=== PATIENT | female | born 1950 | race Caucasian/White ===

== ENCOUNTER 2018-07-13 06:55 | Inpatient (IN) | payer MEDICARE, OTHER ==
[~2018-07-13] VITALS: Ht 154.9 cm; Wt 65.0 kg
[2018-07-13] VITALS (12 sets, daily range): BP systolic 101–126; BP diastolic 37–68
[~2018-07-13 06:55] MED LIST: ALPR1TAB7 SL; ARIP5TAB4 PO; BENA20TA2 PO; BUPR1PAT TP; CHOL100046 PO; DESV100T4 PO; FERR134T2 PO; HYDR-4353 PO; LACT1CAP64 PO; LEVO75TA PO; METO25TA6 PO; ONDA8TAB6 PO; OXYB10TA4 PO
[2018-07-13] MEDS ORDERED: LAMO150T2 PO (07:45)
[2018-07-13] MEDS ORDERED: NALO25TA (07:45)
[2018-07-13] MEDS ORDERED: OXYBUTIN PO (07:45)
[2018-07-13] MEDS ORDERED: HYDR-4353 PO (07:45)
[2018-07-13] MEDS ORDERED: ASPI-1264 PO (07:45)
[2018-07-13] MEDS ORDERED: HYDR-3686 PO (07:45)
[2018-07-13] MEDS ORDERED: [UNRECOGNIZED DRUG - OTHER] PO (07:45)
[2018-07-13] MEDS ORDERED: ONDA8TAB13 PO (07:45)
[2018-07-13] MEDS ORDERED: METH20TA PO (07:45)
[2018-07-13] MEDS ORDERED: CLOP75TA15 PO (07:47)
[2018-07-13 07:48] LABS: BASOPHILS % (AUTO) 0.4 % (0-1); EOSINOPHILS # (AUTO) 0.3 X10'3 (0-0.9); EOSINOPHILS % (AUTO) 3.4 % (0-6); HEMATOCRIT 23.1 % (35.0-45.0); HEMOGLOBIN 7.6 g/dl (12.0-16.0); LYMPHOCYTES # (AUTO) 1.3 X10'3 (1.1-4.8); LYMPHOCYTES % (AUTO) 17.8 % (21-51); MEAN CORPUSCULAR HEMOGLOBIN 29.8 PG (27.0-31.0); MEAN CORPUSCULAR HGB CONC 32.8 % (33.0-36.5); MEAN CORPUSCULAR VOLUME 90.8 FL (78-98); MEAN PLATELET VOLUME 6.9 FL (7.4-10.4); MONOCYTES # (AUTO) 0.5 X10'3 (0-0.9); MONOCYTES % (AUTO) 6.4 % (2-12); NEUTROPHILS # (AUTO) 5.3 X10'3 (1.8-7.7); PLATELET COUNT 320 X10'3 (140-440); RED BLOOD COUNT 2.54 X10'6 (4.20-5.60); RED CELL DISTRIBUTION WIDTH 13.2 % (11.5-14.5); WHITE BLOOD COUNT 7.4 X10'3 (4.5-11.0)
[2018-07-13 08:08] LABS: ALANINE AMINOTRANSFERASE 20 U/L (12-78); ALBUMIN/GLOBULIN RATIO 1.1 (1.1-1.5); ALKALINE PHOSPHATASE 83 IU/L (46-116); ANION GAP 10 (8-16); ASPARTATE AMINO TRANSFERASE 12 U/L (10-37); BILIRUBIN,TOTAL 0.2 MG/DL (0.1-1.0); BLOOD UREA NITROGEN 31 MG/DL (7-18); BUN/CREATININE RATIO 33.7 (6.6-38.0); CHLORIDE 109 MMOL/L (99-107); CREATININE 0.92 MG/DL (0.40-0.90); GLUCOSE 132 MG/DL (70-104); POTASSIUM 3.5 MMOL/L (3.5-5.1); SODIUM 144 MMOL/L (135-145); TOTAL CARBON DIOXIDE 24.7 MMOL/L (24-32); TOTAL PROTEIN 5.7 G/DL (6.4-8.2); eGFR 61 ML/MIN
[2018-07-13 08:11] LABS: PROTHROMBIN TIME 9.8 SECONDS (9.0-12.0)
--- NOTE | 2018-07-13 08:50 | NUR ---
WITNESSED PT'S STOOL. IT IS DEEP RED TARRY STOOL
[2018-07-13] MEDS ORDERED: pantoprazole IV 80 MG in normal saline 100ml IV soln 100 ML IV ONE ×4 (09:00)
[2018-07-13] MEDS ORDERED: pantoprazole 40 MG vial IV ONE (09:00)
[2018-07-13] MEDS: pantoprazole 40MG/NS 100ML BAG 100 ML IV SCH ×4 (09:42→21:03)
[2018-07-13] MEDS ORDERED: mag hydrox/Alum hydrox/simeth 30ml oral suspension PO PRN (09:45)
[2018-07-13] MEDS ORDERED: HYDROcodone/acetaminophen 5mg/325mg tablet PO PRN (09:45)
[2018-07-13] MEDS ORDERED: HYDROcodone/acetaminophen 10/325mg tab PO PRN (09:45)
[2018-07-13] MEDS ORDERED: bisacodyl 10mg suppository rectal RC PRN (09:45)
[2018-07-13] MEDS ORDERED: potassium Cl 20 mEq SR tablet PO PRN ×2 (09:45)
[2018-07-13] MEDS ORDERED: magnesium Cl slow-release 64mg tablet PO PRN (09:45)
[2018-07-13] MEDS ORDERED: ondansetron/PF 4mg/2ml inj IV PRN (09:45)
[2018-07-13] MEDS ORDERED: magnesium 2GM in 50ml NS 50 ML IV PRN (09:45)
[2018-07-13] MEDS ORDERED: potassium Cl 40MEQ/NS 500ml 500 ML IV PRN ×2 (09:45)
[2018-07-13] MEDS ORDERED: magnesium hydroxide 30ml (MOM) UD suspension PO PRN (09:45)
[2018-07-13] MEDS ORDERED: acetaminophen 325mg tablet PO PRN (09:45)
[2018-07-13] MEDS ORDERED: morphine 4 MG/ML inj SYRINge IV PRN ×2 (09:45)
[2018-07-13] MEDS ORDERED: magnesium 4gm in 100ml NS 100 ML IV PRN (09:45)
[2018-07-13] MEDS ORDERED: ALPRAZOLAM PO PRN (09:50)
[2018-07-13] MEDS ORDERED: non-formulary drug (Buprenorphine (Butrans) 1 PATCH) TP SCH (09:50)
[2018-07-13] MEDS: potassium Cl 20mEq in NS 1,000 ML IV SCH ×2 (10:32→22:14)
--- NOTE | 2018-07-13 10:42 | NUR ---
ALLERGY AND FALL BAND PLACED
--- NOTE | 2018-07-13 10:43 | NUR ---
PATIENT WILL HAVE HER GRANDDAUGHTER BRING IN THE NON FORMULARY MEDICATIONS PRESCRIBED
--- NOTE | 2018-07-13 10:47 | NUR ---
ATTEMPTED TO CALL REPORT TO SURGICAL FLOOR: ROOM CHANGED TO ROOM 346A AND THE ROOM IS NOT CLEAN THE ACCEPTING RN IS MINNIE
--- NOTE | 2018-07-13 10:53 | NUR ---
SPOKE TO NURSING THRESHING DEPARTMENT SUPERVISOR JEIMY BECAUSE PATIENT IS REQUESTING A BED BY THE WINDOW. PER JEIMY, THERE ARE NO B BEDS AVAILABLE
[2018-07-13] MEDS ORDERED: pantoprazole 40MG/NS 100ML BAG 100 ML IV SCH (11:00)
[2018-07-13] MEDS: methylphenidate 5mg tablet PO SCH ×2 (12:30→17:30)
--- NOTE | 2018-07-13 12:30 | NUR ---
Received report from SURGICAL TECHNOLOGY INSTRUCTOR. Patient arrived to the floor. TREVA.
[2018-07-13 12:49] LABS: BASOPHILS % (AUTO) 0.4 % (0-1); EOSINOPHILS # (AUTO) 0.3 X10'3 (0-0.9); EOSINOPHILS % (AUTO) 3.6 % (0-6); LYMPHOCYTES # (AUTO) 1.6 X10'3 (1.1-4.8); LYMPHOCYTES % (AUTO) 20.7 % (21-51); MEAN CORPUSCULAR HEMOGLOBIN 30.2 PG (27.0-31.0); MEAN CORPUSCULAR HGB CONC 33.3 % (33.0-36.5); MEAN CORPUSCULAR VOLUME 90.9 FL (78-98); MEAN PLATELET VOLUME 6.6 FL (7.4-10.4); MONOCYTES # (AUTO) 0.5 X10'3 (0-0.9); MONOCYTES % (AUTO) 7.2 % (2-12); NEUTROPHILS # (AUTO) 5.2 X10'3 (1.8-7.7); NEUTROPHILS % (AUTO) 68.1 % (42-75); PLATELET COUNT 300 X10'3 (140-440); RED BLOOD COUNT 2.29 X10'6 (4.20-5.60); RED CELL DISTRIBUTION WIDTH 13.9 % (11.5-14.5); WHITE BLOOD COUNT 7.6 X10'3 (4.5-11.0)
[2018-07-13 12:53] LABS: HEMATOCRIT 20.8 % (35.0-45.0); HEMOGLOBIN 6.9 g/dl (12.0-16.0)
[2018-07-13] MEDS ORDERED: acetaminophen 325mg tablet PO ONE (12:55)
[2018-07-13] MEDS ORDERED: diphenhydrAMINE 25mg capsule PO ONE (12:55)
--- NOTE | 2018-07-13 13:00 | NUR ---
H&H 6.9/.8. Dr Coon gave orders for blood transfusion. patient was consented in ER.
[2018-07-13] MEDS: venlafaxine 25mg tablet PO SCH ×2 (13:49→21:02)
[2018-07-13] MEDS ORDERED: furosemide 20 MG/2 ML vial IV ONE (14:55)
[2018-07-13] MEDS ORDERED: non-formulary drug (Methylphenidate Hcl (Ritalin) 1 TAB) PO SCH (16:00)
[2018-07-13 18:27] LABS: BASOPHILS % (AUTO) 0.6 % (0-1); EOSINOPHILS # (AUTO) 0.3 X10'3 (0-0.9); EOSINOPHILS % (AUTO) 3.8 % (0-6); HEMATOCRIT 22.1 % (35.0-45.0); HEMOGLOBIN 7.4 g/dl (12.0-16.0); LYMPHOCYTES # (AUTO) 1.6 X10'3 (1.1-4.8); LYMPHOCYTES % (AUTO) 24.2 % (21-51); MEAN CORPUSCULAR HEMOGLOBIN 29.8 PG (27.0-31.0); MEAN CORPUSCULAR HGB CONC 33.6 % (33.0-36.5); MEAN CORPUSCULAR VOLUME 88.7 FL (78-98); MEAN PLATELET VOLUME 7.1 FL (7.4-10.4); MONOCYTES # (AUTO) 0.6 X10'3 (0-0.9); MONOCYTES % (AUTO) 8.5 % (2-12); NEUTROPHILS # (AUTO) 4.3 X10'3 (1.8-7.7); NEUTROPHILS % (AUTO) 62.9 % (42-75); PLATELET COUNT 256 X10'3 (140-440); RED BLOOD COUNT 2.49 X10'6 (4.20-5.60); RED CELL DISTRIBUTION WIDTH 13.8 % (11.5-14.5); WHITE BLOOD COUNT 6.8 X10'3 (4.5-11.0)
--- NOTE | 2018-07-13 18:35 | NUR ---
Received report from primary care nurse Maureen BAHENA. Patient is awake and alert on room air. In no apparent distress. Call light and items of frequent use within reach. Will continue to monitor for changes.
[2018-07-13] MEDS: lactobacillus rhamnosus 10,000 MMU CELLS/CAPSULE PO SCH (19:43)
[2018-07-13] MEDS: ferrous sulfate 325mg tablet PO SCH (19:43)
[2018-07-13] MEDS: docusate sod 100mg capsule PO SCH (19:43)
[2018-07-13] MEDS: metoprolol tartrate 25mg tablet PO SCH (19:45)
[2018-07-13] MEDS: oxybutynin 5mg tablet PO SCH (19:50)
[2018-07-13] MEDS ORDERED: FERROUS SULFATE PO SCH (20:00)
[2018-07-13] MEDS ORDERED: OXYBUTIN PO SCH (20:00)
[2018-07-13] MEDS: hydrOXYzine 25 MG tablet PO SCH (21:02)
[2018-07-13] MEDS: ALPRAZolam 0.5mg tablet PO PRN (21:03)
[2018-07-13] MEDS: gabapentin 300mg capsule PO SCH (21:06)
[2018-07-14] VITALS (10 sets, daily range): BP systolic 98–129; BP diastolic 40–71
[2018-07-14 00:55] LABS: BASOPHILS % (AUTO) 0.4 % (0-1); EOSINOPHILS # (AUTO) 0.3 X10'3 (0-0.9); EOSINOPHILS % (AUTO) 3.7 % (0-6); HEMOGLOBIN 9.1 g/dl (12.0-16.0); LYMPHOCYTES # (AUTO) 1.9 X10'3 (1.1-4.8); LYMPHOCYTES % (AUTO) 25.1 % (21-51); MEAN CORPUSCULAR HEMOGLOBIN 29.3 PG (27.0-31.0); MEAN CORPUSCULAR HGB CONC 32.5 % (33.0-36.5); MEAN CORPUSCULAR VOLUME 90.2 FL (78-98); MEAN PLATELET VOLUME 7.2 FL (7.4-10.4); MONOCYTES # (AUTO) 0.7 X10'3 (0-0.9); MONOCYTES % (AUTO) 9.5 % (2-12); NEUTROPHILS # (AUTO) 4.6 X10'3 (1.8-7.7); NEUTROPHILS % (AUTO) 61.3 % (42-75); PLATELET COUNT 279 X10'3 (140-440); RED BLOOD COUNT 3.11 X10'6 (4.20-5.60); RED CELL DISTRIBUTION WIDTH 13.4 % (11.5-14.5); WHITE BLOOD COUNT 7.5 X10'3 (4.5-11.0)
[2018-07-14] MEDS: pantoprazole 40MG/NS 100ML BAG 100 ML IV SCH ×3 (01:35→11:00)
[2018-07-14 05:15] LABS: ALANINE AMINOTRANSFERASE 18 U/L (12-78); ALBUMIN 2.4 G/DL (3.4-5.0); ALBUMIN/GLOBULIN RATIO 1.1 (1.1-1.5); ALKALINE PHOSPHATASE 69 IU/L (46-116); ANION GAP 9 (8-16); ASPARTATE AMINO TRANSFERASE 15 U/L (10-37); BILIRUBIN,TOTAL 0.6 MG/DL (0.1-1.0); BLOOD UREA NITROGEN 22 MG/DL (7-18); BUN/CREATININE RATIO 28.9 (6.6-38.0); CALCIUM 6.9 MG/DL (8.5-10.1); CHLORIDE 114 MMOL/L (99-107); CREATININE 0.76 MG/DL (0.40-0.90); GLUCOSE 90 MG/DL (70-104); MAGNESIUM 1.7 MG/DL (1.5-2.4); POTASSIUM 4.7 MMOL/L (3.5-5.1); SODIUM 147 MMOL/L (135-145); TOTAL CARBON DIOXIDE 24.3 MMOL/L (24-32); TOTAL PROTEIN 4.6 G/DL (6.4-8.2); eGFR 75 ML/MIN
[2018-07-14] MEDS: ALPRAZolam 0.5mg tablet PO PRN (05:55)
--- NOTE | 2018-07-14 06:00 | NUR ---
Patient in room DI[facility] 341. I have received report from SHRUTI Vale and had the opportunity to ask questions and assume patient care. Patient awake and watching TV at this time. Patient alert, oriented and in no apparent distress at this time. Call light and items of frequent use in reach of patient.
--- NOTE | 2018-07-14 06:34 | NUR ---
Reported off to Lorena BAHENA. Patient is awake and alert on room air. In no apparent distress. Call light and items of frequent use within reach.
--- NOTE | 2018-07-14 07:32 | NUR ---
Patient to GI lab for EGD. Patient taken from unit via wheelchair with x1 staff. Patient alert, oriented and in no apparent distress at this time.
[2018-07-14] MEDS ORDERED: fentaNYL/PF 50MCG/1 ML 2ML syringe ONE (07:59)
[2018-07-14] MEDS ORDERED: MIDAZolam 5mg/5ml vial ONE (08:00)
[2018-07-14] MEDS ORDERED: LACTOBACILLUS RHAMNOSUS R11 PO SCH (08:00)
[2018-07-14] MEDS: gabapentin 300mg capsule PO SCH ×4 (08:00→23:44)
[2018-07-14] MEDS: K and/or MAG REPLACEMENT MC SCH (08:00)
[2018-07-14] MEDS: docusate sod 100mg capsule PO SCH ×2 (08:00→20:00)
[2018-07-14] MEDS: ferrous sulfate 325mg tablet PO SCH ×3 (08:00→22:06)
[2018-07-14] MEDS ORDERED: LIDOcaine Viscous 15ml cup ONE (08:00)
[2018-07-14] MEDS ORDERED: [UNRECOGNIZED DRUG - OTHER] PO SCH (08:00)
[2018-07-14] MEDS ORDERED: non-formulary drug (Lamotrigine* (Lamictal*) 1 TAB) PO SCH (08:00)
[2018-07-14] MEDS: methylphenidate 5mg tablet PO SCH ×3 (08:30→16:33)
[2018-07-14] MEDS ORDERED: PEG 3350/Na sulf,bicarb,Cl/KCl oral sol 4 liter bottle PO ONE (09:20)
--- NOTE | 2018-07-14 09:45 | NUR ---
Patient retuned from GI lab. Patient alert, oriented and in no apparent distress at this time.
[2018-07-14] MEDS: lactobacillus rhamnosus 10,000 MMU CELLS/CAPSULE PO SCH ×2 (09:57→20:15)
[2018-07-14] MEDS: aripiprazole 5mg tablet PO SCH (09:57)
[2018-07-14] MEDS: venlafaxine 25mg tablet PO SCH ×3 (10:05→22:07)
[2018-07-14] MEDS: oxybutynin 5mg tablet PO SCH ×2 (10:05→20:15)
[2018-07-14] MEDS: lamoTRIgine 25mg tablet PO SCH (10:08)
[2018-07-14] MEDS: metoprolol tartrate 25mg tablet PO SCH ×2 (10:19→20:15)
[2018-07-14] MEDS: vitamin D (cholecalciferol) 1,000 unit tablet PO SCH (10:20)
[2018-07-14] MEDS: levoTHYROXINE 75mcg tablet PO SCH (10:20)
[2018-07-14] MEDS: potassium Cl 20mEq in NS 1,000 ML IV SCH (11:22)
[2018-07-14] MEDS ORDERED: heparin sodium, porcine/PF 100unit/ml 5ML syringe ONE (11:40)
--- NOTE | 2018-07-14 11:55 | NUR ---
Patient to nuc. [facility] for a GI blood loss scan. Patient taken from unit via gurney with x1 staff. Patient alert, oriented, and in no apparent distress at this time. TeleTai Chowdary notified.
[2018-07-14] MEDS: sodium chloride 0.45% 1,000 ML IV SCH (12:20)
--- NOTE | 2018-07-14 14:00 | NUR ---
Patient returned from [facility]. Patient alert, oriented and in no apparent distress at this time. Call light and items of frequent use in reach of patient
[2018-07-14 14:13] LABS: BASOPHILS % (AUTO) 0.4 % (0-1); EOSINOPHILS # (AUTO) 0.2 X10'3 (0-0.9); EOSINOPHILS % (AUTO) 2.7 % (0-6); HEMATOCRIT 27.3 % (35.0-45.0); HEMOGLOBIN 9.1 g/dl (12.0-16.0); LYMPHOCYTES # (AUTO) 1.8 X10'3 (1.1-4.8); LYMPHOCYTES % (AUTO) 22.7 % (21-51); MEAN CORPUSCULAR HEMOGLOBIN 30.1 PG (27.0-31.0); MEAN CORPUSCULAR HGB CONC 33.5 % (33.0-36.5); MEAN CORPUSCULAR VOLUME 89.8 FL (78-98); MEAN PLATELET VOLUME 6.9 FL (7.4-10.4); MONOCYTES # (AUTO) 0.7 X10'3 (0-0.9); MONOCYTES % (AUTO) 8.3 % (2-12); NEUTROPHILS # (AUTO) 5.2 X10'3 (1.8-7.7); NEUTROPHILS % (AUTO) 65.9 % (42-75); PLATELET COUNT 255 X10'3 (140-440); RED BLOOD COUNT 3.04 X10'6 (4.20-5.60); RED CELL DISTRIBUTION WIDTH 14.1 % (11.5-14.5); WHITE BLOOD COUNT 7.9 X10'3 (4.5-11.0)
--- NOTE | 2018-07-14 14:32 | NUR ---
Malnutrition Consult: Pt admit w/ UGIB following recent gastric bypass surgery per MD note. Which bypass surgery not provided in EMR; pt may need additional diet ed depending on type of surgery and how recent. Pt has no edema/wounds, no weakness, and no significant wt loss past year from prior admits. Does not qualify for malnutrition at this time. Advanced to clears from NPO today; will continue to monitor. Addendum: 07/14/18 at [address] Amended: Links added.
[2018-07-14] MEDS: pantoprazole 40 MG vial IV SCH (14:57)
--- NOTE | 2018-07-14 18:30 | NUR ---
Problems reprioritized. Patient report given, questions answered & plan of care reviewed with SHRUTI Cooley. Patient is currently sitting up in bed. Patient in no apparent distress at this time.
[2018-07-14 19:32] LABS: BASOPHILS % (AUTO) 0.4 % (0-1); EOSINOPHILS # (AUTO) 0.2 X10'3 (0-0.9); EOSINOPHILS % (AUTO) 2.3 % (0-6); HEMATOCRIT 24.9 % (35.0-45.0); HEMOGLOBIN 8.4 g/dl (12.0-16.0); LYMPHOCYTES # (AUTO) 1.9 X10'3 (1.1-4.8); LYMPHOCYTES % (AUTO) 26.9 % (21-51); MEAN CORPUSCULAR HGB CONC 33.7 % (33.0-36.5); MONOCYTES # (AUTO) 0.7 X10'3 (0-0.9); MONOCYTES % (AUTO) 10.6 % (2-12); NEUTROPHILS # (AUTO) 4.2 X10'3 (1.8-7.7); NEUTROPHILS % (AUTO) 59.8 % (42-75); PLATELET COUNT 240 X10'3 (140-440); RED BLOOD COUNT 2.79 X10'6 (4.20-5.60); RED CELL DISTRIBUTION WIDTH 14.1 % (11.5-14.5)
[2018-07-14] MEDS: hydrOXYzine 25 MG tablet PO SCH (22:05)
[2018-07-15] VITALS (9 sets, daily range): BP systolic 111–129; BP diastolic 21–73
[2018-07-15] MEDS: sodium chloride 0.45% 1,000 ML IV SCH ×2 (00:30→16:02)
[2018-07-15 05:41] LABS: ALANINE AMINOTRANSFERASE 24 U/L (12-78); ALBUMIN 2.6 G/DL (3.4-5.0); ALBUMIN/GLOBULIN RATIO 1.2 (1.1-1.5); ALKALINE PHOSPHATASE 64 IU/L (46-116); ANION GAP 8 (8-16); ASPARTATE AMINO TRANSFERASE 21 U/L (10-37); BILIRUBIN,TOTAL 0.3 MG/DL (0.1-1.0); BLOOD UREA NITROGEN 15 MG/DL (7-18); CALCIUM 7.7 MG/DL (8.5-10.1); CHLORIDE 113 MMOL/L (99-107); CREATININE 0.75 MG/DL (0.40-0.90); GLUCOSE 95 MG/DL (70-104); MAGNESIUM 1.8 MG/DL (1.5-2.4); POTASSIUM 3.8 MMOL/L (3.5-5.1); SODIUM 146 MMOL/L (135-145); TOTAL CARBON DIOXIDE 25.4 MMOL/L (24-32); TOTAL PROTEIN 4.8 G/DL (6.4-8.2); eGFR 77 ML/MIN
[2018-07-15 05:44] LABS: BASOPHILS % (AUTO) 0.4 % (0-1); EOSINOPHILS # (AUTO) 0.2 X10'3 (0-0.9); HEMATOCRIT 23.8 % (35.0-45.0); LYMPHOCYTES # (AUTO) 1.5 X10'3 (1.1-4.8); LYMPHOCYTES % (AUTO) 28.2 % (21-51); MEAN CORPUSCULAR HGB CONC 33.5 % (33.0-36.5); MEAN CORPUSCULAR VOLUME 89.5 FL (78-98); MEAN PLATELET VOLUME 7.1 FL (7.4-10.4); MONOCYTES # (AUTO) 0.5 X10'3 (0-0.9); MONOCYTES % (AUTO) 10.2 % (2-12); NEUTROPHILS % (AUTO) 57.2 % (42-75); PLATELET COUNT 224 X10'3 (140-440); RED BLOOD COUNT 2.66 X10'6 (4.20-5.60); RED CELL DISTRIBUTION WIDTH 14.5 % (11.5-14.5); WHITE BLOOD COUNT 5.3 X10'3 (4.5-11.0)
--- NOTE | 2018-07-15 06:42 | NUR ---
Problems reprioritized. Patient report given, questions answered & plan of care reviewed with Lorena. Addendum: 07/15/18 at 0642 by Mark Wells RN Amended: Links added.
--- NOTE | 2018-07-15 06:51 | NUR ---
Patient in room DIOR 341. I have received report from SHRUTI Cooley and had the opportunity to ask questions and assume patient care. Patient is awake, alert, and oriented. Patient feeling a little anxious about her colonoscopy today. Discussed procedure with patient and answered some questions. Patient now resting comfortably. Call light in reach of patient.
[2018-07-15] MEDS: K and/or MAG REPLACEMENT MC SCH (07:40)
[2018-07-15] MEDS: docusate sod 100mg capsule PO SCH (07:40)
[2018-07-15] MEDS: venlafaxine 25mg tablet PO SCH ×2 (08:00→13:02)
[2018-07-15] MEDS: ferrous sulfate 325mg tablet PO SCH ×2 (08:00→12:56)
[2018-07-15] MEDS: methylphenidate 5mg tablet PO SCH ×2 (08:30→13:02)
[2018-07-15] MEDS: pantoprazole 40 MG vial IV SCH (08:30)
--- NOTE | 2018-07-15 08:50 | NUR ---
Patient to GI for colonoscopy. Patient taken from unit via wheelchair with x1 staff. Patient alert, oriented and in no apparent distress at this time.
[2018-07-15] MEDS ORDERED: fentaNYL/PF 50MCG/1 ML 2ML syringe ONE (09:06)
[2018-07-15] MEDS ORDERED: MIDAZolam 5mg/5ml vial ONE (09:07)
--- NOTE | 2018-07-15 10:30 | NUR ---
Patient back from GI lab. Patient alert, oriented and in no apparent distress at this time. Call light and items of frequent use in reach of patient.
[2018-07-15] MEDS: aripiprazole 5mg tablet PO SCH (11:04)
[2018-07-15] MEDS: lactobacillus rhamnosus 10,000 MMU CELLS/CAPSULE PO SCH (11:05)
[2018-07-15] MEDS: oxybutynin 5mg tablet PO SCH (11:05)
[2018-07-15] MEDS: lamoTRIgine 25mg tablet PO SCH (11:06)
[2018-07-15] MEDS: metoprolol tartrate 25mg tablet PO SCH (11:07)
[2018-07-15] MEDS: levoTHYROXINE 75mcg tablet PO SCH (11:07)
[2018-07-15] MEDS: gabapentin 300mg capsule PO SCH ×2 (11:07→16:00)
[2018-07-15] MEDS: vitamin D (cholecalciferol) 1,000 unit tablet PO SCH (11:08)
[2018-07-15] MEDS ORDERED: CREON PO SCH (13:00)
[2018-07-15 13:06] LABS: BASOPHILS % (AUTO) 0.4 % (0-1); EOSINOPHILS # (AUTO) 0.1 X10'3 (0-0.9); EOSINOPHILS % (AUTO) 2.1 % (0-6); HEMATOCRIT 26.3 % (35.0-45.0); HEMOGLOBIN 8.8 g/dl (12.0-16.0); LYMPHOCYTES # (AUTO) 1.4 X10'3 (1.1-4.8); LYMPHOCYTES % (AUTO) 23.2 % (21-51); MEAN CORPUSCULAR HEMOGLOBIN 29.9 PG (27.0-31.0); MEAN CORPUSCULAR HGB CONC 33.3 % (33.0-36.5); MEAN CORPUSCULAR VOLUME 89.7 FL (78-98); MEAN PLATELET VOLUME 6.9 FL (7.4-10.4); MONOCYTES # (AUTO) 0.5 X10'3 (0-0.9); MONOCYTES % (AUTO) 7.9 % (2-12); NEUTROPHILS # (AUTO) 3.9 X10'3 (1.8-7.7); NEUTROPHILS % (AUTO) 66.4 % (42-75); PLATELET COUNT 244 X10'3 (140-440); RED BLOOD COUNT 2.93 X10'6 (4.20-5.60); RED CELL DISTRIBUTION WIDTH 14.4 % (11.5-14.5); WHITE BLOOD COUNT 5.9 X10'3 (4.5-11.0)
--- NOTE | 2018-07-15 17:00 | NUR ---
Patient discharged home via family and taken from unit with x1 staff via wheelchair. Patient PIV removed with cannula intact. Patient alert, oriented, and in no apparent distress. Patient took all belongings included medications from pharmacy. patient stated an understand of discharge instructions and was given time to ask questions.
[2018-07-19] MEDS ORDERED: BUTRANS 20 MCG/HR TP SCH (11:00)
== END 2018-07-15 17:01 | disposition home or self-care (01) | DRG 378 ==
LOC: ER 06:56 → ED HOLD 09:00 → SUR 3N 12:23
PROVIDERS: ADMIT Internal Medicine; ATTEND Internal Medicine
PROC: 30233N1 Transfusion of Nonautologous Red Blood Cells into Peripheral Vein, Percutaneous Approach (ICD-10-PCS; principal; 2018-07-13)
PROC: CD17YZZ Planar Nuclear Medicine Imaging of Gastrointestinal Tract using Other Radionuclide (ICD-10-PCS; 2018-07-14)
PROC: 0DJ08ZZ Inspection of Upper Intestinal Tract, Via Natural or Artificial Opening Endoscopic (ICD-10-PCS; 2018-07-14)
PROC: 0DJD8ZZ Inspection of Lower Intestinal Tract, Via Natural or Artificial Opening Endoscopic (ICD-10-PCS; 2018-07-15)
DX: K57.31 Diverticulosis of large intestine without perforation or abscess with bleeding (principal); K86.1 Other chronic pancreatitis; D64.9 Anemia, unspecified; E03.9 Hypothyroidism, unspecified; F32.9 Major depressive disorder, single episode, unspecified; F41.9 Anxiety disorder, unspecified; G89.29 Other chronic pain; M54.9 Dorsalgia, unspecified; Z96.659 Presence of unspecified artificial knee joint; Z96.649 Presence of unspecified artificial hip joint; Z98.84 Bariatric surgery status; Z90.49 Acquired absence of other specified parts of digestive tract; Z98.0 Intestinal bypass and anastomosis status; Z88.2 Allergy status to sulfonamides; Z88.8 Allergy status to other drugs, medicaments and biological substances; Z79.899 Other long term (current) drug therapy; Z79.890 Hormone replacement therapy; Z79.02 Long term (current) use of antithrombotics/antiplatelets; Z86.73 Personal history of transient ischemic attack (TIA), and cerebral infarction without residual deficits; Z87.11 Personal history of peptic ulcer disease
CPT/HCPCS: 36415; 45378; 71045; 78278; 80053; 83735; 84443; 85025; 85610; 86885; 86900; 86901; 86920; 87070; 93005; 99152; 99153; 99285; A4620; A9560; C9113; G0378; J1642; J1940; J2250; J3010; J7030; P9016; Q0163; Q0177

== ENCOUNTER 2022-10-25 18:47 | Emergency (ER) | payer MEDICARE, OTHER ==
[~2022-10-25] VITALS: Ht 154.9 cm; Wt 70.0 kg
[~2022-10-25 18:47] MED LIST changes: +ARIP5TAB14 PO; -ARIP5TAB4 PO; -BENA20TA2 PO; -DESV100T4 PO; +HYDR-3686 PO; +LAMO150T2 PO; +LOP25T PO; +METH20TA PO; -METO25TA6 PO; +NALO25TA4; +ONDA8TAB13 PO; -ONDA8TAB6 PO; -OXYB10TA4 PO; +OXYBUTIN PO; +[UNRECOGNIZED DRUG - OTHER] PO
[2022-10-25 19:14] LABS: BASOPHILS # (AUTO) 0.1 X10'3 (0-0.2); BASOPHILS % (AUTO) 0.6 % (0-1); EOSINOPHILS # (AUTO) 0.3 X10'3 (0-0.9); EOSINOPHILS % (AUTO) 3.1 % (0-6); HEMATOCRIT 34.3 % (35.0-45.0); HEMOGLOBIN 11.2 g/dl (12.0-16.0); LYMPHOCYTES # (AUTO) 1.1 X10'3 (1.1-4.8); LYMPHOCYTES % (AUTO) 11.2 % (21-51); MEAN CORPUSCULAR HEMOGLOBIN 30.9 PG (27.0-31.0); MEAN CORPUSCULAR HGB CONC 32.7 g/dL (33.0-36.5); MEAN CORPUSCULAR VOLUME 94.5 FL (78-98); MEAN PLATELET VOLUME 7.4 FL (7.4-10.4); MONOCYTES % (AUTO) 10.2 % (2-12); NEUTROPHILS # (AUTO) 7.4 X10'3 (1.8-7.7); NEUTROPHILS % (AUTO) 74.9 % (42-75); PLATELET COUNT 334 X10'3 (140-440); RED BLOOD COUNT 3.63 X10'6 (4.20-5.60); RED CELL DISTRIBUTION WIDTH 13.6 % (11.5-14.5); WHITE BLOOD COUNT 9.9 X10'3 (4.5-11.0)
[2022-10-25 19:28] LABS: ALANINE AMINOTRANSFERASE 18 U/L (12-78); ALBUMIN 2.5 G/DL (3.4-5.0); ALBUMIN/GLOBULIN RATIO 0.8 (1.1-1.5); ALKALINE PHOSPHATASE 103 IU/L (46-116); ANION GAP 12 (8-16); ASPARTATE AMINO TRANSFERASE 15 U/L (10-37); BILIRUBIN,TOTAL 0.2 MG/DL (0.1-1.0); BLOOD UREA NITROGEN 19 MG/DL (7-18); BUN/CREATININE RATIO 17.6 (10.0-20.0); CALCIUM 7.7 MG/DL (8.5-10.1); CHLORIDE 106 MMOL/L (99-107); CREATININE 1.08 MG/DL (0.40-0.90); GLUCOSE 100 MG/DL (70-104); POTASSIUM 3.7 MMOL/L (3.5-5.1); SODIUM 140 MMOL/L (135-145); TOTAL CARBON DIOXIDE 22.2 MMOL/L (24-32); TOTAL PROTEIN 5.6 G/DL (6.4-8.2); eGFR 50 ML/MIN
[2022-10-25 19:37] LABS: MAGNESIUM 1.8 MG/DL (1.5-2.4)
[2022-10-25] MEDS ORDERED: amox tr/potassium clavulanate 875/125mg TAB PO ONE (21:05)
[2022-10-25] MEDS ORDERED: AMOX-117 PO (21:09)
[2022-10-25 21:31] VITALS: BP 146/82
== END 2022-10-25 21:51 | disposition home or self-care (01) ==
LOC: ER 18:48
DX: R07.89 Other chest pain (principal); I10 Essential (primary) hypertension; G89.29 Other chronic pain; Z90.49 Acquired absence of other specified parts of digestive tract; Z98.890 Other specified postprocedural states; Z88.2 Allergy status to sulfonamides; Z79.899 Other long term (current) drug therapy
CPT/HCPCS: 36415; 71045; 74176; 80053; 83735; 83880; 84484; 85025; 93005; 99285